=== PATIENT | male | born 1950 | race African-American/Black ===

== ENCOUNTER 2016-07-10 19:38 | Inpatient (IN) | payer MEDICAID, MEDICARE, OTHER ==
[~2016-07-10] VITALS: Ht 167.6 cm; Wt 99.5 kg
[2016-07-10 20:50] LABS: Basophils # (auto) 0 uL; Basophils % (auto) 0.5 % (0.0-2.0); DEFINITIVE VIEW TRANSMISSION; Eosinophils # (auto) 0.1 uL; Hematocrit 46.8 % (41.0-53.0); Lymphocytes # (auto) 1.5 uL; Lymphocytes % (auto) 24.1 % (10.0-50.0); Mean Corpuscular Hemoglobin 26.8 pg (28.0-32.0); Mean Corpuscular Volume 83.8 fL (80.0-100.0); Mean Platelet Volume 8.8 fL (7.4-10.4); Monocytes # (auto) 0.7 uL; Monocytes % (auto) 11.4 % (0.0-12.0); Neutrophils # (auto) 3.9 uL; Platelet Count (auto) 205 10^3/uL (140-450); Red Cell Distribution Width 17.9 % (11.6-16.0); White Blood Cell 6.2 10^3/uL (4.4-10.8)
[2016-07-10] MEDS ORDERED: methylPREDNISolone SOD SUCC 125 MG/2 ML VL IV ONE (21:00)
[2016-07-10] MEDS ORDERED: ALBUTEROL SULF 2.5 MG/0.5ML(0.5%) NEB SOLN NEB ONE (21:00)
[2016-07-10] MEDS ORDERED: IPRATROPIUM BROM 0.5 MG/2.5ML INH SOL NEB ONE (21:00)
[2016-07-10] MEDS: cefTRIAXone 1GM/50ML D5W 50 ML IV ONE ×2 (21:17→21:50)
[2016-07-10 21:20] LABS: Albumin 3.7 g/dL (3.4-5.0); Calcium 8.8 mg/dL (8.5-10.1); Magnesium 2.3 mg/dL (1.6-2.6); Potassium 3.9 mmol/L (3.5-5.1)
[2016-07-10 21:22] LABS: Bilirubin, Total 1.4 mg/dL (0.2-1.0); Total Protein 8.1 g/dL (6.4-8.2)
[2016-07-10 21:38] LABS: Urine Bilirubin Negative (Negative); Urine Blood Negative /uL (Negative); Urine Color Yellow (Yellow); Urine Glucose Normal (Normal); Urine Ketone Negative (Negative); Urine Nitrite Negative (Negative); Urine RBC 4 /hpf (0 - 3); Urine Squamous Epithelial Cell FEW /hpf (<5); Urine Urobilinogen Normal (Negative)
[2016-07-10 21:40] LABS: B-Type Natriuretic Peptide 203.59 pg/mL (0-100); Temperature: 22.7 C (20.0-25.0)
[2016-07-10] MEDS ORDERED: METH5TAB2 PO (22:48)
[2016-07-10] MEDS ORDERED: GABA-339 PO (22:49)
[2016-07-10] MEDS ORDERED: WARF5TAB71 PO (22:50)
[2016-07-10] MEDS ORDERED: METO25TA5 PO (22:50)
[2016-07-10] MEDS ORDERED: POTA10TA34 PO (22:51)
[2016-07-10] MEDS ORDERED: FURO20TA PO (22:51)
[2016-07-10] MEDS ORDERED: ALLO300T2 PO (22:52)
[2016-07-10] MEDS ORDERED: NITROGLYCERIN 0.4 MG SL TAB SL PRN (23:00)
[2016-07-10] MEDS ORDERED: FUROSEMIDE 40 MG/4 ML VIAL IV ONE (23:00)
[2016-07-10] MEDS ORDERED: LACTULOSE 20Gm/30ML SOLN PO PRN (23:00)
[2016-07-10] MEDS ORDERED: MORPHINE SULF INJ 2 MG/ML SYRINGE 1ML IV PRN (23:00)
[2016-07-11] VITALS (7 sets, daily range): BP systolic 135–153; BP diastolic 63–82
[2016-07-11] MEDS ORDERED: CHOL20007 PO (00:49)
[2016-07-11] MEDS ORDERED: MELA3TAB27 PO (00:50)
[2016-07-11] MEDS ORDERED: ZOLPIDEM TARTRATE 5 MG TAB PO PRN (02:00)
[2016-07-11] MEDS: ALBUTEROL SULF 2.5 MG/0.5ML(0.5%) NEB SOLN NEB SCH ×4 (02:21→14:44)
[2016-07-11] MEDS: IPRATROPIUM BROM 0.5 MG/2.5ML INH SOL NEB SCH ×4 (02:21→14:45)
[2016-07-11] MEDS: SODIUM CHLOR 0.9% PF (SALINE LOCK) 10ML VIAL IV SCH ×2 (05:17→14:00)
[2016-07-11 06:10] LABS: Basophils # (auto) 0 uL; Basophils % (auto) 0.2 % (0.0-2.0); DEFINITIVE VIEW TRANSMISSION; Eosinophils # (auto) 0 uL; Hematocrit 47.4 % (41.0-53.0); Hemoglobin 14.9 g/dL (13.5-17.5); Lymphocytes # (auto) 0.5 uL; Lymphocytes % (auto) 10.5 % (10.0-50.0); Mean Corpuscular Hemoglobin 26.7 pg (28.0-32.0); Mean Corpuscular Hgb Conc. 31.4 g/dL (32.0-36.0); Mean Corpuscular Volume 84.9 fL (80.0-100.0); Mean Platelet Volume 8.6 fL (7.4-10.4); Monocytes # (auto) 0.1 uL; Monocytes % (auto) 1.5 % (0.0-12.0); Neutrophils # (auto) 4.3 uL; Neutrophils % (auto) 87.8 % (37.0-80.0); Platelet Count (auto) 191 10^3/uL (140-450); Red Cell Distribution Width 18.1 % (11.6-16.0); White Blood Cell 4.9 10^3/uL (4.4-10.8)
[2016-07-11 06:49] LABS: Albumin 3.7 g/dL (3.4-5.0); BUN/Creatinine Ratio 20.5; Bilirubin, Total 1.2 mg/dL (0.2-1.0); Potassium 3.9 mmol/L (3.5-5.1); Total Protein 8.1 g/dL (6.4-8.2)
[2016-07-11 06:50] LABS: Partial Thromboplastin Time 46.5 sec (22.64-33.71)
[2016-07-11 06:52] LABS: INR 2.1 (0.9-1.15); Prothrombin Time 21.6 sec (9.37-12.3)
[2016-07-11] MEDS ORDERED: cefTRIAXone 1GM/50ML D5W 50 ML IV SCH (09:00)
[2016-07-11] MEDS ORDERED: ENOXAPARIN SOD 30 MG/0.3 ML SYRINGE SC SCH (10:00)
[2016-07-11] MEDS ORDERED: METHADONE HCL 10 MG TAB PO SCH (10:00)
[2016-07-11] MEDS ORDERED: FUROSEMIDE 40 MG/4 ML VIAL IV SCH (10:00)
[2016-07-11] MEDS ORDERED: GABAPENTIN 400 MG CAP PO SCH (10:00)
[2016-07-11] MEDS ORDERED: methylPREDNISolone SOD SUCC 125 MG/2 ML VL IV SCH (10:00)
[2016-07-11] MEDS ORDERED: PANTOPRAZOLE SODIUM 40 MG/10 ML VIAL IV SCH (10:00)
[2016-07-11] MEDS ORDERED: POTASSIUM CHL 10 Meq TABLET PO SCH (10:00)
[2016-07-11] MEDS ORDERED: METOPROLOL TARTRATE 25 MG TAB PO SCH (10:00)
[2016-07-11] MEDS ORDERED: ALLOPURINOL 300 MG TAB PO SCH (10:00)
[2016-07-11] MEDS ORDERED: ENOXAPARIN SOD 40 MG/0.4 ML SYRINGE SC SCH (10:00)
[2016-07-11] MEDS ORDERED: DOCUSATE SOD 100 MG CAP PO ONE (13:15)
[2016-07-11] MEDS ORDERED: SENNA 8.6 MG TAB PO ONE (13:15)
[2016-07-11] MEDS ORDERED: POLYETHYLENE GLYCOL 17GM PWDR PO ONE (13:15)
[2016-07-11] MEDS ORDERED: WARFARIN SODIUM 1 MG TAB PO ONE (17:00)
[2016-07-11] MEDS ORDERED: WARFARIN SODIUM 5 MG TAB PO ONE ×2 (17:00)
== END 2016-07-11 17:00 | disposition home or self-care (01) | DRG 191 ==
LOC: ER 19:41 → TELE 19:42 → TELE-CENTR 23:47
PROVIDERS: ADMIT Family Medicine; ATTEND Family Medicine
DX: J44.1 Chronic obstructive pulmonary disease with (acute) exacerbation (principal); I50.42 Chronic combined systolic (congestive) and diastolic (congestive) heart failure; F41.9 Anxiety disorder, unspecified; G62.9 Polyneuropathy, unspecified; G89.4 Chronic pain syndrome; I11.0 Hypertensive heart disease with heart failure; I48.91 Unspecified atrial fibrillation; M10.9 Gout, unspecified; Z82.49 Family history of ischemic heart disease and other diseases of the circulatory system; Z86.711 Personal history of pulmonary embolism; Z86.718 Personal history of other venous thrombosis and embolism; Z87.891 Personal history of nicotine dependence; Z98.890 Other specified postprocedural states
CPT/HCPCS: 36415; 36600; 71010; 80053; 81001; 82805; 83735; 83880; 84484; 85025; 85049; 85610; 85730; 87040; 94640; 96365; 96375; C9113; J0696

== ENCOUNTER 2017-01-19 17:19 | Inpatient (IN) | payer OTHER ==
[~2017-01-19] VITALS: Ht 185.4 cm; Wt 106.3 kg
[~2017-01-19 17:19] MED LIST: ALBUAER3 IN; ALLO300T2 PO; CHOL20007 PO; FURO40TA PO; GABA-339 PO; MELA3TAB27 PO; METH5TAB2 PO; METO25TA5 PO; POTA10TA34 PO; WARPRX PO
[2017-01-19] MEDS ORDERED: ALBUTEROL SULF 2.5 MG/0.5ML(0.5%) NEB SOLN HHN ONE (18:15)
[2017-01-19] MEDS ORDERED: methylPREDNISolone SOD SUCC 125 MG/2 ML VL IV ONE ×2 (18:15→18:30)
[2017-01-19] MEDS ORDERED: IPRATROPIUM BROM 0.5 MG/2.5ML INH SOL HHN ONE (18:15)
[2017-01-19 19:21] LABS: Basophils # (auto) 0 uL; Basophils % (auto) 0.6 % (0.0-2.0); CONDITION Y; DEFINITIVE SEE PRINTOUT; Eosinophils # (auto) 0.1 uL; Eosinophils % (auto) 2.2 % (0.0-7.0); Hemoglobin 11.7 g/dL (13.5-17.5); Lymphocytes # (auto) 1.2 uL; Lymphocytes % (auto) 19.6 % (10.0-50.0); Mean Corpuscular Hemoglobin 26.2 pg (28.0-32.0); Mean Corpuscular Hgb Conc. 32.6 g/dL (32.0-36.0); Mean Corpuscular Volume 80.4 fL (80.0-100.0); Mean Platelet Volume 9.3 fL (7.4-10.4); Monocytes # (auto) 0.7 uL; Monocytes % (auto) 10.9 % (0.0-12.0); Neutrophils % (auto) 66.7 % (37.0-80.0); Platelet Count (auto) 241 10^3/uL (140-450); White Blood Cell 6.1 10^3/uL (4.4-10.8)
[2017-01-19 19:26] LABS: Albumin 3.3 g/dL (3.4-5.0); Anion Gap 9 (5-15); Aspartate Aminotransferase 20 U/L (15-37); BUN/Creatinine Ratio 13.4; Blood Urea Nitrogen 24 mg/dL (7-18); Calcium 8.4 mg/dL (8.5-10.1); Carbon Dioxide 26 mmol/L (21-32); Chloride 104 mmol/L (98-107); GFR African American 49 mL/min; GFR Non-African American 40 mL/min; Glucose 79 mg/dL (74-106); Sodium 139 mmol/L (136-145)
[2017-01-19 19:31] LABS: Alkaline Phosphatase 107 U/L (45-117); Bilirubin, Total 1.3 mg/dL (0.2-1.0); Total Protein 6.9 g/dL (6.4-8.2)
[2017-01-19 19:34] LABS: Urine Bilirubin Negative (Negative); Urine Blood Negative /uL (Negative); Urine Color Yellow (Yellow); Urine Glucose Normal (Normal); Urine Ketone Negative (Negative); Urine Nitrite Negative (Negative); Urine RBC <1 /hpf (0 - 3); Urine Squamous Epithelial Cell FEW /hpf (<5); Urine Urobilinogen Normal (Negative)
[2017-01-19 19:35] LABS: B-Type Natriuretic Peptide 317.6 pg/mL (0-100)
[2017-01-19 19:57] LABS: Temperature: 23.1 C (20.0-25.0)
[2017-01-19 20:23] LABS: Platelet Estimate Adequate
[2017-01-19 20:24] LABS: Anisocytosis Slight; Hypochromia Slight
[2017-01-19] MEDS ORDERED: ONDANSETRON HCL 4 MG/2 ML VIAL IV ONE (20:30)
[2017-01-19] MEDS ORDERED: MORPHINE SULF INJ 2 MG/ML SYRINGE 1ML IV ONE (20:30)
[2017-01-19] MEDS ORDERED: LORazepam 2MG/ML-1ML VIAL IV ONE (22:15)
[2017-01-19] MEDS ORDERED: FUROSEMIDE 40 MG/4 ML VIAL IV ONE (22:15)
[2017-01-19] MEDS ORDERED: LEVOFLOXACIN 500MG 100 ML IV ONE (22:15)
[2017-01-19 22:27] VITALS: BP 134/78
[2017-01-19] MEDS ORDERED: NITROGLYCERIN 0.4 MG SL TAB SL PRN (22:30)
[2017-01-19] MEDS ORDERED: methylPREDNISolone SOD SUCC 40 MG/ML VL IV SCH (22:30)
[2017-01-19] MEDS ORDERED: MORPHINE SULF INJ 2 MG/ML SYRINGE 1ML IV PRN (22:30)
[2017-01-19] MEDS ORDERED: LACTULOSE 20Gm/30ML SOLN PO PRN (22:30)
[2017-01-19] MEDS ORDERED: ONDANSETRON HCL 4 MG/2 ML VIAL IV PRN (22:30)
[2017-01-19] MEDS: methylPREDNISolone SOD SUCC 125 MG/2 ML VL IV SCH (22:47)
[2017-01-19 23:20] LABS: Partial Thromboplastin Time 49.7 sec (22.64-33.71)
[2017-01-19 23:25] LABS: Prothrombin Time 44.6 sec (9.37-12.3)
[2017-01-19 23:28] LABS: INR 4.03 (0.9-1.15)
[2017-01-20] MEDS: ALBUTEROL SULF 2.5 MG/0.5ML(0.5%) NEB SOLN NEB SCH ×6 (02:14→22:20)
[2017-01-20] MEDS: IPRATROPIUM BROM 0.5 MG/2.5ML INH SOL NEB SCH ×6 (02:15→22:20)
[2017-01-20] MEDS ORDERED: LORazepam 2MG/ML-1ML VIAL IV PRN (04:00)
[2017-01-20] MEDS: FUROSEMIDE 40 MG/4 ML VIAL IV SCH ×2 (06:05→18:35)
[2017-01-20] MEDS: SODIUM CHLOR 0.9% PF (SALINE LOCK) 10ML VIAL IV SCH ×3 (06:05→22:27)
[2017-01-20 06:28] LABS: Basophils # (auto) 0 uL; Basophils % (auto) 0.2 % (0.0-2.0); CONDITION Y; DEFINITIVE SEE PRINTOUT; Eosinophils # (auto) 0 uL; Hematocrit 36.4 % (41.0-53.0); Hemoglobin 11.8 g/dL (13.5-17.5); Lymphocytes # (auto) 0.4 uL; Lymphocytes % (auto) 10.6 % (10.0-50.0); Mean Corpuscular Hemoglobin 26.2 pg (28.0-32.0); Mean Corpuscular Hgb Conc. 32.3 g/dL (32.0-36.0); Mean Corpuscular Volume 81.1 fL (80.0-100.0); Mean Platelet Volume 9.1 fL (7.4-10.4); Monocytes # (auto) 0 uL; Monocytes % (auto) 0.9 % (0.0-12.0); Neutrophils # (auto) 3.5 uL; Neutrophils % (auto) 88.3 % (37.0-80.0); Platelet Count (auto) 228 10^3/uL (140-450); Red Cell Distribution Width 19.4 % (11.6-16.0)
[2017-01-20 07:10] LABS: B-Type Natriuretic Peptide 436.99 pg/mL (0-100)
[2017-01-20 07:14] LABS: Albumin 3.2 g/dL (3.4-5.0); BUN/Creatinine Ratio 14.2; Bilirubin, Total 0.9 mg/dL (0.2-1.0); Calcium 9.2 mg/dL (8.5-10.1); Potassium 4.1 mmol/L (3.5-5.1); Total Protein 7.1 g/dL (6.4-8.2)
[2017-01-20 07:29] LABS: Partial Thromboplastin Time 52.1 sec (22.64-33.71)
[2017-01-20 07:41] LABS: Prothrombin Time 55.2 sec (9.37-12.3)
[2017-01-20 07:44] LABS: INR 4.98 (0.9-1.15)
[2017-01-20 07:49] LABS: Temperature: 23.3 C (20.0-25.0)
[2017-01-20 09:00] VITALS: BP 140/91
[2017-01-20 09:32] LABS: Anisocytosis Slight; Burr Cells FEW; Hypochromia Slight; Ovalocytes FEW; Platelet Estimate Adequate; Tear Drop Cells FEW
[2017-01-20] MEDS: METOPROLOL SUCCINATE XL 50 MG TAB PO SCH (09:47)
[2017-01-20] MEDS: ENALAPRIL MALEATE 10 MG TAB PO SCH (09:47)
[2017-01-20] MEDS: POTASSIUM CHL 20 Meq TABLET PO SCH (09:47)
[2017-01-20] MEDS: METOLAZONE 5 MG TAB PO SCH (09:48)
[2017-01-20] MEDS: PANTOPRAZOLE SODIUM 40 MG/10 ML VIAL IV SCH (09:48)
[2017-01-20] MEDS: DIGOXIN 0.125 MG TAB PO SCH (09:48)
[2017-01-20] MEDS: methylPREDNISolone SOD SUCC 125 MG/2 ML VL IV SCH ×2 (09:48→22:37)
[2017-01-20] MEDS: ASPirin 81 mg TAB PO SCH (10:00)
[2017-01-20] MEDS ORDERED: METOPROLOL SUCCINATE XL 50 MG TAB PO SCH (10:00)
[2017-01-20] MEDS ORDERED: CARVEDILOL 3.125 MG TAB PO SCH (10:00)
[2017-01-20] MEDS: LORazepam 0.5 MG TAB PO PRN ×2 (11:09→18:58)
[2017-01-20] MEDS: LEVOFLOXACIN 500MG 100 ML IV SCH (11:27)
[2017-01-20 12:19] VITALS: BP 126/82
[2017-01-20 16:14] VITALS: BP 139/73
[2017-01-20] MEDS ORDERED: WARFARIN SODIUM 5 MG TAB PO ONE (17:00)
[2017-01-20 20:00] VITALS: BP 139/73
[2017-01-20 22:00] VITALS: BP 135/83
[2017-01-20] MEDS ORDERED: HYDROcodone-ACET 10/325MG TAB PO PRN (22:15)
[2017-01-20] MEDS ORDERED: ALPRAZolam 0.5 MG TAB PO PRN (22:15)
[2017-01-21] MEDS: IPRATROPIUM BROM 0.5 MG/2.5ML INH SOL NEB SCH ×4 (02:00→13:51)
[2017-01-21] MEDS: ALBUTEROL SULF 2.5 MG/0.5ML(0.5%) NEB SOLN NEB SCH ×4 (02:00→13:51)
[2017-01-21 05:00] VITALS: BP 134/75
[2017-01-21] MEDS: FUROSEMIDE 40 MG/4 ML VIAL IV SCH (06:10)
[2017-01-21] MEDS: SODIUM CHLOR 0.9% PF (SALINE LOCK) 10ML VIAL IV SCH ×2 (06:11→13:08)
[2017-01-21 06:53] LABS: Partial Thromboplastin Time 52.5 sec (22.64-33.71)
[2017-01-21 07:17] LABS: Prothrombin Time 75.4 sec (9.37-12.3)
[2017-01-21 07:26] LABS: INR 6.78 (0.9-1.15)
[2017-01-21 08:00] VITALS: BP 118/70
[2017-01-21 08:29] VITALS: BP 118/70
[2017-01-21] MEDS: PANTOPRAZOLE SODIUM 40 MG/10 ML VIAL IV SCH (10:43)
[2017-01-21] MEDS: LEVOFLOXACIN 500MG 100 ML IV SCH (10:43)
[2017-01-21] MEDS: methylPREDNISolone SOD SUCC 125 MG/2 ML VL IV SCH (10:44)
[2017-01-21] MEDS: POTASSIUM CHL 20 Meq TABLET PO SCH (10:44)
[2017-01-21] MEDS: METOPROLOL SUCCINATE XL 50 MG TAB PO SCH (10:47)
[2017-01-21] MEDS: ASPirin 81 mg TAB PO SCH (10:48)
[2017-01-21] MEDS: DIGOXIN 0.125 MG TAB PO SCH (10:48)
[2017-01-21] MEDS: METOLAZONE 5 MG TAB PO SCH (10:48)
[2017-01-21] MEDS: ENALAPRIL MALEATE 10 MG TAB PO SCH (10:49)
[2017-01-21 13:25] VITALS: BP 119/68
[2017-01-21 13:47] VITALS: BP 119/68
== END 2017-01-21 15:15 | disposition home health service (06) | DRG 291 ==
LOC: ER 17:32 → TELE 17:33 → TELE-EAST 01-20 01:20
PROVIDERS: ADMIT Family Medicine; ATTEND Internal Medicine
DX: I13.0 Hypertensive heart and chronic kidney disease with heart failure and stage 1 through stage 4 chronic kidney disease, or unspecified chronic kidney disease (principal); J96.00 Acute respiratory failure, unspecified whether with hypoxia or hypercapnia; I50.43 Acute on chronic combined systolic (congestive) and diastolic (congestive) heart failure; J44.1 Chronic obstructive pulmonary disease with (acute) exacerbation; N18.3 Chronic kidney disease, stage 3 (moderate); E66.9 Obesity, unspecified; G89.4 Chronic pain syndrome; D64.9 Anemia, unspecified; I48.0 Paroxysmal atrial fibrillation; F41.9 Anxiety disorder, unspecified; M10.9 Gout, unspecified; Z79.01 Long term (current) use of anticoagulants; Z83.3 Family history of diabetes mellitus; Z82.49 Family history of ischemic heart disease and other diseases of the circulatory system; Z86.711 Personal history of pulmonary embolism; Z87.891 Personal history of nicotine dependence; Z91.19 Patient's noncompliance with other medical treatment and regimen; Z99.81 Dependence on supplemental oxygen; Z68.30 Body mass index [BMI] 30.0-30.9, adult
CPT/HCPCS: 36415; 71010; 80053; 80061; 81001; 83605; 83735; 83880; 84484; 85025; 85379; 85610; 85730; 87040; 93005; 93306; 94640; 96365; 96375; C9113; J1956; J2405

== ENCOUNTER 2017-02-15 12:38 | Inpatient (IN) | payer OTHER ==
[~2017-02-15] VITALS: Ht 188 cm; Wt 100.2 kg
[2017-02-15 14:00] LABS: Basophils # (auto) 0 uL; Basophils % (auto) 0.8 % (0.0-2.0); CONDITION Y; DEFINITIVE SEE PRINTOUT; Eosinophils # (auto) 0.1 uL; Eosinophils % (auto) 2.1 % (0.0-7.0); Hematocrit 35.1 % (41.0-53.0); Hemoglobin 11.4 g/dL (13.5-17.5); Lymphocytes # (auto) 0.9 uL; Lymphocytes % (auto) 15.5 % (10.0-50.0); Mean Corpuscular Hemoglobin 26.1 pg (28.0-32.0); Mean Corpuscular Hgb Conc. 32.5 g/dL (32.0-36.0); Mean Corpuscular Volume 80.4 fL (80.0-100.0); Mean Platelet Volume 8.6 fL (7.4-10.4); Monocytes # (auto) 0.9 uL; Monocytes % (auto) 14.7 % (0.0-12.0); Neutrophils % (auto) 66.9 % (37.0-80.0); Platelet Count (auto) 295 10^3/uL (140-450); Red Cell Distribution Width 19.5 % (11.6-16.0); White Blood Cell 5.9 10^3/uL (4.4-10.8)
[2017-02-15 14:18] LABS: Albumin 3.5 g/dL (3.4-5.0); Anion Gap 9 (5-15); Aspartate Aminotransferase 29 U/L (15-37); BUN/Creatinine Ratio 13.2; Blood Urea Nitrogen 20 mg/dL (7-18); Calcium 8.7 mg/dL (8.5-10.1); Carbon Dioxide 24 mmol/L (21-32); Chloride 108 mmol/L (98-107); GFR African American 60 mL/min; GFR Non-African American 49 mL/min; Glucose 87 mg/dL (74-106); Magnesium 2.8 mg/dL (1.6-2.6); Potassium 4.5 mmol/L (3.5-5.1); Sodium 141 mmol/L (136-145)
[2017-02-15 14:23] LABS: Alkaline Phosphatase 125 U/L (45-117); Bilirubin, Total 0.7 mg/dL (0.2-1.0); Total Protein 7.4 g/dL (6.4-8.2)
[2017-02-15] MEDS ORDERED: FUROSEMIDE 40 MG/4 ML VIAL IV ONE (15:45)
[2017-02-15 16:28] LABS: B-Type Natriuretic Peptide 278.57 pg/mL (0-100)
[2017-02-15 16:30] LABS: Temperature: 24.1 C (20.0-25.0)
[2017-02-15] MEDS ORDERED: NITROGLYCERIN 0.4 MG SL TAB SL PRN (18:00)
[2017-02-15] MEDS ORDERED: HYDROcodone-ACET 5/325MG TAB PO PRN (18:00)
[2017-02-15] MEDS ORDERED: ACETAMINOPHEN 500 MG TAB PO PRN (18:00)
[2017-02-15] MEDS ORDERED: MORPHINE SULF INJ 2 MG/ML SYRINGE 1ML IV PRN ×2 (18:00)
[2017-02-15] MEDS ORDERED: ONDANSETRON HCL 4 MG/2 ML VIAL IV PRN (18:00)
[2017-02-15] MEDS ORDERED: ALBUTEROL SULF 2.5 MG/0.5ML(0.5%) NEB SOLN NEB PRN (18:30)
[2017-02-15 18:44] LABS: Urine Bilirubin Negative (Negative); Urine Blood 1+ /uL (Negative); Urine Color Yellow (Yellow); Urine Glucose Normal (Normal); Urine Ketone Negative (Negative); Urine Nitrite Negative (Negative); Urine RBC 14 /hpf (0 - 3); Urine Squamous Epithelial Cell FEW /hpf (<5); Urine Urobilinogen Normal (Negative)
[2017-02-15 19:20] LABS: INR 3.25 (0.9-1.15); Partial Thromboplastin Time 43.2 sec (22.64-33.71); Prothrombin Time 35.8 sec (9.37-12.3)
[2017-02-15] MEDS: METOPROLOL TARTRATE 25 MG TAB PO SCH (21:58)
[2017-02-15] MEDS: GABAPENTIN 400 MG CAP PO SCH (21:59)
[2017-02-15 23:30] VITALS: BP 115/76
[2017-02-16] VITALS (8 sets, daily range): BP systolic 118–143; BP diastolic 67–78
[2017-02-16] MEDS: IPRATROPIUM BROM 0.5 MG/2.5ML INH SOL NEB SCH ×5 (00:31→20:10)
[2017-02-16] MEDS: ALBUTEROL SULF 2.5 MG/0.5ML(0.5%) NEB SOLN NEB SCH ×5 (00:31→20:10)
[2017-02-16] MEDS: TEMAZEPAM 15 MG CAP PO PRN ×2 (00:37→22:10)
[2017-02-16] MEDS ORDERED: FUROSEMIDE 40 MG TAB PO SCH (06:00)
[2017-02-16 06:29] LABS: Basophils # (auto) 0 uL; Basophils % (auto) 0.5 % (0.0-2.0); CONDITION Y; DEFINITIVE SEE PRINTOUT; Eosinophils # (auto) 0.1 uL; Eosinophils % (auto) 2.4 % (0.0-7.0); Hematocrit 33.3 % (41.0-53.0); Hemoglobin 10.8 g/dL (13.5-17.5); Lymphocytes # (auto) 1.3 uL; Lymphocytes % (auto) 25.9 % (10.0-50.0); Mean Corpuscular Hemoglobin 25.9 pg (28.0-32.0); Mean Corpuscular Hgb Conc. 32.3 g/dL (32.0-36.0); Mean Corpuscular Volume 80.1 fL (80.0-100.0); Mean Platelet Volume 8.1 fL (7.4-10.4); Monocytes # (auto) 0.8 uL; Monocytes % (auto) 15.5 % (0.0-12.0); Neutrophils # (auto) 2.7 uL; Neutrophils % (auto) 55.7 % (37.0-80.0); Platelet Count (auto) 250 10^3/uL (140-450); Red Cell Distribution Width 19.6 % (11.6-16.0); White Blood Cell 4.9 10^3/uL (4.4-10.8)
[2017-02-16 06:41] LABS: INR 3.85 (0.9-1.15); Partial Thromboplastin Time 46.2 sec (22.64-33.71); Prothrombin Time 42.5 sec (9.37-12.3)
[2017-02-16 06:56] LABS: Calcium 8.9 mg/dL (8.5-10.1); Potassium 4.3 mmol/L (3.5-5.1)
[2017-02-16 07:03] LABS: BUN/Creatinine Ratio 15.8
[2017-02-16 07:20] LABS: B-Type Natriuretic Peptide 371.35 pg/mL (0-100)
[2017-02-16 07:24] LABS: Temperature: 22.3 C (20.0-25.0)
[2017-02-16] MEDS: ALLOPURINOL 300 MG TAB PO SCH (10:24)
[2017-02-16] MEDS: POTASSIUM CHL 20 Meq TABLET PO SCH (10:25)
[2017-02-16] MEDS: METOPROLOL TARTRATE 25 MG TAB PO SCH (10:25)
[2017-02-16] MEDS: GABAPENTIN 400 MG CAP PO SCH ×2 (10:26→22:07)
[2017-02-16] MEDS ORDERED: LISINOPRIL 5 MG TAB PO SCH (13:00)
[2017-02-16] MEDS: METOLAZONE 5 MG TAB PO SCH (16:32)
[2017-02-16] MEDS: FUROSEMIDE 40 MG/4 ML VIAL IV SCH (18:00)
[2017-02-17] MEDS: IPRATROPIUM BROM 0.5 MG/2.5ML INH SOL NEB SCH ×3 (00:49→12:14)
[2017-02-17] MEDS: ALBUTEROL SULF 2.5 MG/0.5ML(0.5%) NEB SOLN NEB SCH ×3 (00:49→12:15)
[2017-02-17 05:00] VITALS: BP 106/72
[2017-02-17] MEDS: FUROSEMIDE 40 MG/4 ML VIAL IV SCH (05:17)
[2017-02-17 07:15] LABS: BUN/Creatinine Ratio 17.1; Calcium 9.5 mg/dL (8.5-10.1); Potassium 3.9 mmol/L (3.5-5.1)
[2017-02-17 07:18] LABS: INR 3.51 (0.9-1.15); Partial Thromboplastin Time 44.7 sec (22.64-33.71); Prothrombin Time 38.8 sec (9.37-12.3)
[2017-02-17 07:46] VITALS: BP 145/82
[2017-02-17] MEDS: GABAPENTIN 400 MG CAP PO SCH (09:43)
[2017-02-17] MEDS: ALLOPURINOL 300 MG TAB PO SCH (09:43)
[2017-02-17] MEDS: POTASSIUM CHL 20 Meq TABLET PO SCH (09:43)
[2017-02-17] MEDS: METOLAZONE 5 MG TAB PO SCH (09:44)
[2017-02-17] MEDS ORDERED: METOPROLOL SUCCINATE XL 50 MG TAB PO SCH (10:00)
[2017-02-17] MEDS ORDERED: FURO40TA PO (11:20)
[2017-02-17] MEDS ORDERED: SPIR25TA88 PO (11:20)
[2017-02-17 12:19] VITALS: BP 124/62
== END 2017-02-17 14:30 | disposition home health service (06) | DRG 189 ==
LOC: ER 12:38 → EDUNIT# 12:38 → EDBD 12:38 → TELE 18:17 → TELE-CENTR 22:56
PROVIDERS: ADMIT Nurse Practitioner Family; ATTEND Hospitalist
DX: J96.20 Acute and chronic respiratory failure, unspecified whether with hypoxia or hypercapnia (principal); I50.43 Acute on chronic combined systolic (congestive) and diastolic (congestive) heart failure; E11.22 Type 2 diabetes mellitus with diabetic chronic kidney disease; Z99.81 Dependence on supplemental oxygen; I13.0 Hypertensive heart and chronic kidney disease with heart failure and stage 1 through stage 4 chronic kidney disease, or unspecified chronic kidney disease; E66.9 Obesity, unspecified; I48.0 Paroxysmal atrial fibrillation; N18.3 Chronic kidney disease, stage 3 (moderate); J44.9 Chronic obstructive pulmonary disease, unspecified; F41.9 Anxiety disorder, unspecified; M10.9 Gout, unspecified; Z79.01 Long term (current) use of anticoagulants; Z82.49 Family history of ischemic heart disease and other diseases of the circulatory system; Z83.3 Family history of diabetes mellitus; Z79.899 Other long term (current) drug therapy; Z86.711 Personal history of pulmonary embolism; Z80.9 Family history of malignant neoplasm, unspecified; Z68.28 Body mass index [BMI] 28.0-28.9, adult
CPT/HCPCS: 36415; 71010; 80048; 80053; 81001; 83735; 83880; 84484; 85025; 85610; 85730; 87081; 93005; 94640; 94761; 96374; 97163

== ENCOUNTER 2017-10-21 22:45 | Emergency (ER) | payer OTHER ==
[~2017-10-21] VITALS: Ht 182.9 cm; Wt 90.7 kg
[~2017-10-21 22:45] MED LIST changes: +DOXY-112 PO; +IPRIH INH; -POTA10TA34 PO; +PRED-559 PO; +SPIR25TA88 PO
[2017-10-21] MEDS ORDERED: IPRATROPIUM BROM 0.5 MG/2.5ML INH SOL NEB ONE (23:45)
[2017-10-21] MEDS ORDERED: ALBUTEROL SULF 2.5 MG/0.5ML(0.5%) NEB SOLN NEB ONE (23:45)
[2017-10-21 23:54] LABS: Basophils # (auto) 0 uL; Eosinophils # (auto) 0 uL; Eosinophils % (auto) 0.1 % (0.0-7.0); Lymphocytes # (auto) 0.6 uL; Mean Corpuscular Volume 76.9 fL (80.0-100.0); Monocytes # (auto) 0.5 uL; Neutrophils # (auto) 6.4 uL; Nucleated Red Blood Cells % 0.5 %; Platelet Count (auto) 286 10^3/uL (140-450); White Blood Cell 7.5 10^3/uL (4.4-10.8)
[2017-10-21 23:55] LABS: Basophils % (auto) 0.2 % (0.0-2.0); Hematocrit 39.1 % (41.0-53.0); Hemoglobin 12.5 g/dL (13.5-17.5); Mean Corpuscular Hemoglobin 24.5 pg (28.0-32.0); Mean Corpuscular Hgb Conc. 31.8 g/dL (32.0-36.0); Monocytes % (auto) 6.8 % (0.0-12.0); Neutrophils % (auto) 84.9 % (37.0-80.0); Red Blood Cells 5.09 10^6/uL (4.5-5.90)
[2017-10-21 23:58] LABS: Red Cell Distribution Width 19.4 % (11.8-14.3)
[2017-10-22 00:08] LABS: Alanine Aminotransferase 27 U/L (16-61); Albumin 3.4 g/dL (3.4-5.0); Anion Gap 10 (5-15); Aspartate Aminotransferase 18 U/L (15-37); BUN/Creatinine Ratio 24.5; Blood Urea Nitrogen 36 mg/dL (7-18); Calcium 8.9 mg/dL (8.5-10.1); Carbon Dioxide 25 mmol/L (21-32); Chloride 105 mmol/L (98-107); GFR African American 61 mL/min; GFR Non-African American 51 mL/min; Glucose 193 mg/dL (74-106); Magnesium 2.1 mg/dL (1.6-2.6); Potassium 3.6 mmol/L (3.5-5.1); Sodium 140 mmol/L (136-145)
[2017-10-22 00:15] LABS: Alkaline Phosphatase 129 U/L (45-117); Bilirubin, Total 0.6 mg/dL (0.2-1.0); Total Protein 8.1 g/dL (6.4-8.2)
[2017-10-22 00:32] LABS: Urine Bacteria NONE SEEN /hpf (None Seen); Urine Blood Negative /uL (Negative); Urine Mucus FEW (None Seen); Urine WBC 1 /hpf (0 - 3)
[2017-10-22] MEDS ORDERED: FUROSEMIDE 20 MG/2 ML VIAL IV ONE (02:15)
[2017-10-22 03:58] VITALS: BP 153/95
== END 2017-10-22 06:16 | disposition home or self-care (01) ==
LOC: ER 22:45
DX: J44.1 Chronic obstructive pulmonary disease with (acute) exacerbation (principal); I48.91 Unspecified atrial fibrillation; I13.0 Hypertensive heart and chronic kidney disease with heart failure and stage 1 through stage 4 chronic kidney disease, or unspecified chronic kidney disease; I50.9 Heart failure, unspecified; N18.3 Chronic kidney disease, stage 3 (moderate); M10.9 Gout, unspecified; E66.01 Morbid (severe) obesity due to excess calories; Z68.27 Body mass index [BMI] 27.0-27.9, adult; Z90.49 Acquired absence of other specified parts of digestive tract; Z99.81 Dependence on supplemental oxygen
CPT/HCPCS: 36415; 71045; 80053; 81001; 83735; 83880; 84484; 85025; 93005; 94640; 96374; 99285; J1940

== ENCOUNTER 2017-12-08 11:41 | Emergency (ER) | payer OTHER ==
[~2017-12-08] VITALS: Ht 182.9 cm; Wt 81.6 kg
[2017-12-08 12:00] VITALS: BP 122/67
[2017-12-08 12:46] LABS: Basophils # (auto) 0.1 uL; Eosinophils # (auto) 0.2 uL; Monocytes # (auto) 0.9 uL; White Blood Cell 6.9 10^3/uL (4.4-10.8)
[2017-12-08 12:48] LABS: Eosinophils % (auto) 2.2 % (0.0-7.0); Hematocrit 35.5 % (41.0-53.0); Hemoglobin 11.4 g/dL (13.5-17.5); Lymphocytes # (auto) 1.5 uL; Lymphocytes % (auto) 21.2 % (10.0-50.0); Mean Corpuscular Hemoglobin 21.7 pg (28.0-32.0); Mean Corpuscular Hgb Conc. 32.2 g/dL (32.0-36.0); Mean Corpuscular Volume 67.4 fL (80.0-100.0); Monocytes % (auto) 12.9 % (0.0-12.0); Neutrophils # (auto) 4.3 uL; Neutrophils % (auto) 62.7 % (37.0-80.0); Nucleated Red Blood Cells % 1.3 %; Platelet Count (auto) 463 10^3/uL (140-450); Red Blood Cells 5.26 10^6/uL (4.5-5.90)
[2017-12-08 12:53] LABS: Red Cell Distribution Width 24.3 % (11.8-14.3)
[2017-12-08 13:02] LABS: Alanine Aminotransferase 26 U/L (16-61); Albumin 3.8 g/dL (3.4-5.0); Anion Gap 11 (5-15); Aspartate Aminotransferase 23 U/L (15-37); BUN/Creatinine Ratio 25.6; Blood Urea Nitrogen 61 mg/dL (7-18); Carbon Dioxide 31 mmol/L (21-32); Chloride 91 mmol/L (98-107); GFR African American 35 mL/min; GFR Non-African American 29 mL/min; Glucose 93 mg/dL (74-106); Potassium 3.9 mmol/L (3.5-5.1); Sodium 133 mmol/L (136-145)
[2017-12-08 13:07] LABS: Alkaline Phosphatase 117 U/L (45-117); Bilirubin, Total 2.1 mg/dL (0.2-1.0)
[2017-12-08] MEDS ORDERED: diphenhdrAMINE HCL 12.5 MG/5 ML UD PO ONE (17:00)
== END 2017-12-08 13:38 | disposition home or self-care (01) ==
LOC: EDBD 11:41 → ER 11:43
DX: M79.672 Pain in left foot (principal); M79.671 Pain in right foot; R53.1 Weakness; I50.9 Heart failure, unspecified; I11.0 Hypertensive heart disease with heart failure; M10.9 Gout, unspecified; Z87.891 Personal history of nicotine dependence; Z90.49 Acquired absence of other specified parts of digestive tract; Z88.0 Allergy status to penicillin; Z88.8 Allergy status to other drugs, medicaments and biological substances; Z79.899 Other long term (current) drug therapy
CPT/HCPCS: 36415; 71045; 80053; 84484; 85025

== ENCOUNTER 2018-01-13 18:42 | Inpatient (IN) | payer OTHER ==
[~2018-01-13] VITALS: Ht 182.9 cm; Wt 92.7 kg
[2018-01-13 22:42] LABS: Urine Bacteria NONE SEEN /hpf (None Seen); Urine Blood Negative /uL (Negative); Urine Mucus FEW (None Seen); Urine Specific Gravity 1.004 (1.001-1.035); Urine WBC 1 /hpf (0 - 3)
[2018-01-14] VITALS (8 sets, daily range): BP systolic 103–153; BP diastolic 57–74
[2018-01-14] MEDS ORDERED: SODIUM CHLORIDE 0.9% 1,000 ML IV ONE (00:15)
[2018-01-14 00:48] LABS: Eosinophils # (auto) 0.2 uL; Hemoglobin 10.5 g/dL (13.5-17.5); Mean Corpuscular Hgb Conc. 31.1 g/dL (32.0-36.0); Monocytes # (auto) 0.9 uL; Nucleated Red Blood Cells % 0.2 %; Red Blood Cells 4.95 10^6/uL (4.5-5.90); White Blood Cell 8.7 10^3/uL (4.4-10.8)
[2018-01-14 00:50] LABS: Basophils # (auto) 0 uL; Basophils % (auto) 0.4 % (0.0-2.0); Hematocrit 33.7 % (41.0-53.0); Lymphocytes % (auto) 22.9 % (10.0-50.0); Mean Corpuscular Hemoglobin 21.2 pg (28.0-32.0); Mean Corpuscular Volume 68.1 fL (80.0-100.0); Monocytes % (auto) 10.3 % (0.0-12.0); Neutrophils # (auto) 5.6 uL; Neutrophils % (auto) 64.4 % (37.0-80.0); Platelet Count (auto) 302 10^3/uL (140-450)
[2018-01-14 00:52] LABS: Red Cell Distribution Width 25.7 % (11.8-14.3)
[2018-01-14 00:53] LABS: Albumin 3.6 g/dL (3.4-5.0); Calcium 8.7 mg/dL (8.5-10.1); Chloride 99 mmol/L (98-107); Potassium 4.4 mmol/L (3.5-5.1); Sodium 137 mmol/L (136-145)
[2018-01-14 00:57] LABS: Anion Gap 10 (5-15); Aspartate Aminotransferase 22 U/L (15-37); BUN/Creatinine Ratio 10.4; Blood Urea Nitrogen 14 mg/dL (7-18); Carbon Dioxide 28 mmol/L (21-32); GFR African American 68 mL/min; GFR Non-African American 56 mL/min; Glucose 69 mg/dL (74-106)
[2018-01-14] MEDS ORDERED: KETOROLAC TROMETH 30 MG/ML 1ML VIAL IV ONE (01:00)
[2018-01-14 01:02] LABS: Alanine Aminotransferase 23 U/L (16-61); Alkaline Phosphatase 132 U/L (45-117); Bilirubin, Total 0.8 mg/dL (0.2-1.0); Total Protein 7.5 g/dL (6.4-8.2)
[2018-01-14 01:05] LABS: INR 2.7 (0.9-1.15); Prothrombin Time 27.3 sec (9.27-12.13)
[2018-01-14] MEDS ORDERED: ONDANSETRON HCL 4 MG/2 ML VIAL IV PRN (02:30)
[2018-01-14] MEDS ORDERED: LORazepam 0.5 MG TAB PO PRN (02:30)
[2018-01-14] MEDS ORDERED: HYDROcodone-ACET 5/325MG TAB PO PRN (02:30)
[2018-01-14] MEDS ORDERED: ACETAMINOPHEN 500 MG TAB PO PRN (02:30)
[2018-01-14] MEDS ORDERED: TEMAZEPAM 15 MG CAP PO PRN (02:30)
[2018-01-14] MEDS ORDERED: DEXTROSE (50%) 50ML SYRG IV PRN (03:00)
[2018-01-14] MEDS ORDERED: MORPHINE SULF INJ 2 MG/ML SYRINGE 1ML IV PRN (03:00)
[2018-01-14] MEDS ORDERED: TRAM50TA2 PO (04:41)
[2018-01-14] MEDS ORDERED: GABA-339 PO (04:41)
[2018-01-14] MEDS ORDERED: FUROSEMIDE 40 MG/4 ML VIAL IV ONE (05:30)
[2018-01-14] MEDS: ACCU-CHEK COMFORT CURVE STRIP VI SCH ×3 (06:33→16:58)
[2018-01-14] MEDS: InsuLIN REG 1unit/0.01ml Soln (100units/ml) SC SCH ×3 (06:34→16:58)
[2018-01-14] MEDS: ALBUTEROL SULF 2.5 MG/0.5ML(0.5%) NEB SOLN NEB SCH ×3 (07:11→19:02)
[2018-01-14] MEDS: IPRATROPIUM BROM 0.5 MG/2.5ML INH SOL NEB SCH ×3 (07:11→19:02)
[2018-01-14 07:23] LABS: Basophils # (auto) 0 uL; Eosinophils # (auto) 0.2 uL; Hemoglobin 9.5 g/dL (13.5-17.5); Monocytes # (auto) 0.8 uL; Platelet Count (auto) 258 10^3/uL (140-450)
[2018-01-14 07:24] LABS: Basophils % (auto) 0.3 % (0.0-2.0); Eosinophils % (auto) 3.1 % (0.0-7.0); Hematocrit 30.3 % (41.0-53.0); Lymphocytes # (auto) 1.5 uL; Lymphocytes % (auto) 25.7 % (10.0-50.0); Mean Corpuscular Hemoglobin 21.2 pg (28.0-32.0); Mean Corpuscular Hgb Conc. 31.2 g/dL (32.0-36.0); Mean Corpuscular Volume 67.8 fL (80.0-100.0); Monocytes % (auto) 13.9 % (0.0-12.0); Neutrophils # (auto) 3.3 uL; Nucleated Red Blood Cells % 0.1 %; Red Blood Cells 4.46 10^6/uL (4.5-5.90); White Blood Cell 5.7 10^3/uL (4.4-10.8)
[2018-01-14 07:47] LABS: BUN/Creatinine Ratio 11.8; Calcium 8.5 mg/dL (8.5-10.1); Potassium 3.9 mmol/L (3.5-5.1)
[2018-01-14 08:07] LABS: Red Cell Distribution Width 25.5 % (11.8-14.3)
[2018-01-14] MEDS ORDERED: busPIRone HCL 10 MG TAB PO SCH (10:00)
[2018-01-14] MEDS ORDERED: METOPROLOL TARTRATE 25 MG TAB PO SCH (10:00)
[2018-01-14] MEDS ORDERED: POTASSIUM CHL 10 Meq TABLET PO SCH (10:00)
[2018-01-14] MEDS ORDERED: GABAPENTIN 400 MG CAP PO SCH (10:00)
[2018-01-14 11:57] LABS: INR 2.56 (0.9-1.15)
[2018-01-14] MEDS ORDERED: WARFARIN SODIUM 2 MG TAB PO ONE (17:00)
[2018-01-15] MEDS ORDERED: FUROSEMIDE 40 MG/4 ML VIAL IV SCH (10:00)
== END 2018-01-14 21:00 | disposition home health service (06) | DRG 948 ==
LOC: EDBD 18:42 → EDUNIT# 18:42 → ER 18:44 → TELE 18:45 → TELE-WESTW 01-14 03:29
PROVIDERS: ADMIT Nurse Practitioner Family; ATTEND Nurse Practitioner Family
DX: R53.1 Weakness (principal); J44.1 Chronic obstructive pulmonary disease with (acute) exacerbation; E11.9 Type 2 diabetes mellitus without complications; F51.04 Psychophysiologic insomnia; G62.9 Polyneuropathy, unspecified; G89.29 Other chronic pain; W18.30XA Fall on same level, unspecified, initial encounter; I11.0 Hypertensive heart disease with heart failure; I50.9 Heart failure, unspecified; S06.0X0A Concussion without loss of consciousness, initial encounter; Z83.3 Family history of diabetes mellitus; I48.2 Chronic atrial fibrillation; J44.9 Chronic obstructive pulmonary disease, unspecified; M10.9 Gout, unspecified; Z79.01 Long term (current) use of anticoagulants; Z79.4 Long term (current) use of insulin; Z79.899 Other long term (current) drug therapy; Z82.49 Family history of ischemic heart disease and other diseases of the circulatory system; Y93.89 Activity, other specified; Y92.89 Other specified places as the place of occurrence of the external cause; Y99.8 Other external cause status
CPT/HCPCS: 36415; 70450; 71045; 80048; 80053; 81001; 82962; 83036; 83874; 83880; 84484; 85025; 85610; 93005; 94640; 96361; 96374; 96375; J1885